=== PATIENT | female | born 1975 | race Caucasian/White ===

== ENCOUNTER → 2016-07-02 | Outpatient (CLI) | payer OTHER ==
--- NOTE | 2016-07-06 16:04 | REPMRS ---
Patient History The patient states she had a clinical breast exam in 05/2016. Patient is postmenopausal. Patient had tested positive for BRCA1. Family history of ovarian cancer in mother at age 60 and breast cancer in maternal cousin under age 50. Digital Woman Screen Mammo: July 02, 2016 - Exam #: [id number] Bilateral CC and MLO view(s) were taken. Technologist: Jo-Ann Evans, Technologist Prior study comparison: June 24, 2015, digital woman screen mammo performed at [facility]. 2013, digital bilateral screening mammo, performed at [facility]. FINDINGS: There are scattered fibroglandular densities. There has been no change in the appearance of the mammogram from the prior studies. There is a mild amount of residual fibroglandular tissue which is fairly symmetric. There is no interval development of dominant mass, architectural distortion, or clustered microcalcification suggestive of malignancy. ASSESSMENT: BI-RADS/ACR category 1 mammogram. Negative. Recommendation Routine screening mammogram in 1 year (for women over age 40). This mammogram was interpreted with the aid of an FDA-approved computer-aided dectection system. Electronically Signed By: Michoacano Florence MD 07/06/16 0796
== END ==
LOC: M WHC 11:05
PROVIDERS: ATTEND Nurse Practitioner Adult Health
DX: Z12.31 Encounter for screening mammogram for malignant neoplasm of breast (principal)

== ENCOUNTER → 2016-08-26 | Outpatient (CLI) | payer OTHER ==
[2016-08-26 12:10] LABS: BASO % 0.7 % (0.0-1.0); EOS # 0.1 K/mm3 (0.0-0.50); EOS % 1.1 % (0.0-3.0); LARGE UNSTAINED CELL # 0.1 K/mm3 (0.0-0.4); LARGE UNSTAINED CELL % 1.6 % (0.0-4.0); LYMPH # 2.3 K/mm3 (1.5-4.5); LYMPH % 39.4 % (24.0-44.0); MEAN CORPUSCULAR HEMOGLOBIN 31.3 pg (27.0-33.0); MEAN CORPUSCULAR HGB CONC 33.1 g/dl (32.0-36.5); MEAN CORPUSCULAR VOLUME 94.4 fl (80.0-96.0); MONO # 0.3 K/mm3 (0.0-0.8); MONO % 4.4 % (0.0-5.0); NEUTROPHILS % 52.8 % (36.0-66.0); PLATELET COUNT, AUTOMATED 257 k/mm3 (150-450); RED CELL DISTRIBUTION WIDTH 12.1 % (11.5-14.5); WHITE BLOOD COUNT 5.7 K/mm3 (4.0-10.0)
[2016-08-26 12:36] LABS: VITAMIN B12 LEVEL 858 PG/ML (247-911)
[2016-08-26 12:58] LABS: ALBUMIN 4.1 GM/DL (3.2-5.2); ALBUMIN/GLOBULIN RATIO 1.08 (1.00-1.93); ALKALINE PHOSPHATASE 102 U/L (45-117); ALT/SGPT 42 U/L (12-78); ANION GAP 8 MEQ/L (8-16); AST/SGOT 26 U/L (15-37); BILIRUBIN,TOTAL 0.4 MG/DL (0.2-1.0); BLOOD UREA NITROGEN 28 MG/DL (7-18); CALCIUM LEVEL 9.6 MG/DL (8.5-10.1); CARBON DIOXIDE LEVEL 27 MEQ/L (21-32); CHLORIDE LEVEL 107 MEQ/L (98-107); CREATININE FOR GFR 0.82 MG/DL (0.55-1.02); GLOMERULAR FILTRATION RATE > 60.0 (>60); GLUCOSE, FASTING 71 MG/DL (70-105); POTASSIUM SERUM 4.1 MEQ/L (3.5-5.1); SODIUM LEVEL 142 MEQ/L (136-145); TOTAL PROTEIN 7.9 GM/DL (6.4-8.2)
== END ==
LOC: M LAB 11:16
PROVIDERS: ATTEND Psychiatry & Neurology Neurology
DX: G43.711 Chronic migraine without aura, intractable, with status migrainosus (principal); G44.221 Chronic tension-type headache, intractable